=== PATIENT | male | born 1985 | race Caucasian/White ===

== ENCOUNTER → 2021-11-14 15:27 | Outpatient (BNVA) | payer SELFPAY | PROVIDERS: Family Provider Family Medicine; PCP Family Medicine; Visit Provider Emergency Medicine | DX: R68.89 Other general symptoms and signs (principal); R11.0 Nausea; B34.9 Viral infection, unspecified; I10 Essential (primary) hypertension | CPT/HCPCS: 87635 ==

== ENCOUNTER 2024-08-27 18:46 | Emergency (ER) | payer BC, MEDICAID, SELFPAY ==
[2024-08-27] VITALS (7 sets, daily range): BP systolic 142–217; BP diastolic 98–127; PULSE 57–70; RESP 14–16; TEMP 36.7; O2SAT 96–98; BMI 26.6
--- NOTE | 2024-08-27 19:27 | ECG_ITS ---
[facility] 2024-08-27 Pat Name: Miguel Chicas Department: Room: Gender: Male Head Of Data: : 1985 Requested By: Cora Morales Order Number: [id number] Phylicia MD: HALLIE BRADSHAW Measurements Intervals [place] Rate: 65 P: 69 OR: 191 QRS: 25 QRSD: 94 T: 59 QT: 397 QTc: 415 Interpretive Statements SINUS RHYTHM NONSPECIFIC T-WAVE ABNORMALITY No previous ECG available for comparison Electronically Signed On 08-27-2024 20:57:45 CDT by HALLIE BRADSHAW [email or web address]
--- NOTE | 2024-08-27 20:38 | XRR_ITS ---
PROCEDURE INFORMATION: Exam: XR Chest Exam date and time: 08/27/2024 8:42 PM Age: 39 years old Clinical indication: Other: HTN; Additional info: HTN, cp TECHNIQUE: Imaging protocol: Radiologic exam of the chest. Views: 1 view. COMPARISON: No relevant prior studies available. FINDINGS: Tubes, catheters and devices: None. Lungs: Left lung volume appears slightly decreased. The lungs appear otherwise clear. Pleural spaces: No pleural effusion. No pneumothorax. Heart/Mediastinum: Mediastinum and susanna appear unremarkable. Diaphragm: Slight elevation of the left hemidiaphragm is demonstrated. Bones/joints: No acute bony abnormality identified. XR/XR chest 1V portable [id number] IMPRESSION: No evidence for an acute cardiopulmonary process.
--- NOTE | 2024-08-27 20:43 | ED_ITS ---
HPI - General Adult 2 General: Chief complaint: General Medical Stated complaint: High BP Time Seen by Provider: 08/27/24 20:25 Source: patient Mode of arrival: ambulatory Limitations: no limitations and other History of Present Illness: Patient is a 39-year-old male presents to the emergency department complaining of high blood pressure. States he has been having headaches for the past few months, and has been having blood pressure readings greater than 200 systolic at home. Had onset of central chest pressure today upon waking, it has been constant. He states he used to take medications for blood pressure, does not remember what they are but states he has not followed up with his regular doctor because he states that he got upset she was blaming his high blood pressure on stress. No shortness of breath, visual changes, dizziness or lightheadedness, or other symptoms noted at this time. Blood pressure noted to be 199/106 with triage. MD complaint: HTN, THORNE, CP Onset (ago): month(s) Pain Consistency: constant Associated symptoms: Reports chest pain and headache(s); Deny dyspnea, nausea, rash, palpitations or vomiting Treatments prior to arrival: none Related Data Previous Rx's ?Medication ?Instructions ?Recorded albuterol sulfate 90 mcg/actuation 2 puff inhalation Q 6H PRN 11/14/21 aerosol inhaler shortness of breath or wheez ing #8.5 grams lisinopril 20 mg tablet 20 mg PO DAILY #60 tabs 08/01 12/24 Allergies Allergy/AdvReac Type Severity Reaction Status Date / Time No Known Allergies Allergy Verified 07/08/23 16:59 Review of Systems 2 General: Reports: 10 or more systems reviewed and unremarkable except in HPI and below Const: Denies: fever(s), chills or fatigue Eyes: Denies: change in vision ENMT: Denies: throat pain, ear or mastoid pain or nasal discharge Card: Reports: chest pain and other (HTN); Denies: palpitations, swelling of feet/ankles or lightheadedness Resp: Denies: dyspnea, productive cough or wheezing GI: Denies: abdominal pain, nausea, vomiting, diarrhea or constipation : Denies: flank pain, difficulty urinating, dysuria or urinary frequency Musc: Denies: neck pain, back pain or joint pain Skin/Breast: Denies: rash Neuro: Reports: headache(s); Denies: numbness in extremities or weakness in extremities PFSH ED 2 PFSH: Social History Smoking and tobacco/nicotine status: current every day tobacco/nicotine user Physical Exam 2 Const: COMMON NORMALS: no acute distress, patient oriented x3 and no limitations GENERAL APPEARANCE: cooperative, comfortable and well developed ORIENTATION/CONSCIOUSNESS: Yes awake, Yes oriented to person, Yes oriented to place and Yes oriented to time HENMT: COMMON NORMALS: normocephalic, atraumatic and hearing grossly normal bilaterally HEAD & SCALP: normocephalic and atraumatic Eye: COMMON NORMALS: Equal, round and reactive pupils present, EOMs intact bilaterally and conjunctivae normal CONJUNCTIVA: Yes conjunctivae normal P UPIL: Yes Equal, round and reactive pupils present Neck/C-Spine: COMMON NORMALS: full ROM, supple and no JVD Resp: COMMON NORMALS: normal respiratory effort, No retractions, No use of accessory muscles and clear to auscultation bilaterally AUSCULTATION: clear to auscultation bilaterally Cardio: COMMON NORMALS: no JVD, regular rate, regular rhythm, No clicks present (Cardio), No murmurs present (Cardio) and No rub (Cardio) RATE: r egular rate RHYTHM: regular rhythm GI: COMMON NORMALS: Normal to inspection, nondistended, normoactive bowel sounds present, Soft to palpation and non-tender AUSCULTATION: Yes normoactive bowel sounds PALPATION: Yes Soft to palpation RECTAL EXAM: Yes deferred Extremity: COMMON NORMALS: normal to inspection, full ROM and capillary refill normal Neuro: COMMON NORMALS: patient oriented x3, moves all extremities, no focal motor deficits and no sensory deficits noted SENSORIUM/ORIENTATION: Yes oriented to person, Yes oriented to place and Yes oriented to time Skin: COMMON NORMALS: no rashes or lesions noted GENERAL SKIN EXAM: no rashes or lesions noted Course 2 Vital Signs: Vital signs: Vital Signs Temperature 98.1 F 08/27/24 19:18 Pulse Rate 61 08/27/24 22:15 Respiratory Rate 16 08/27/24 22:15 Blood Pressure 142/98 08/27/24 22:19 Pulse Oximetry 96 08/27/24 22:15 Oxygen Delivery Me thod Room Air 08/27/24 22:15 [facility] - General Adult Medical Decision Making Patient presented with complaints of high blood pressure, stating he has been having headaches for the past few months and actually had onset of chest pain this morning. Used to take unknown blood pressure medication, states he has not followed up with his regular doctor as he was upset that she Stating it was related to stress. Here in triage blood pressure elevated at 199/106, he states at home it has been as high as 240 systolic. Currently has a headache and the chest pressure at this time. Physical exam was normal. Lab work was all normal, including normal troponin, unremarkable EKG, and normal chest x-ray. He was given hydralazine through an IV, blood pressure on recheck noted to be down to 142/98 and he was symptom-free asking if he could go home. Will refer him to PCP for further follow-up and sent prescription for lisinopril as it appears that this is what he was taking for his blood pressure. Encouraged him to take a log of his blood pressure at home to report to PCP and to return with any recurrence of chest pain, shortness of breath, or other concerns. Lab Data 08/27/24 20:35 08/27/24 20:35 Radiology Impressions Chest X-Ray 08/27/24 20:38 IMPRESSION: No evidence for an acute cardiopulmonary process. Laboratory Results WBC 7.69 10^3/uL (3.29-11.43) 08/27/24 20:35 RBC 4.85 10^6/uL (3.85-5.65) 08/27/24 20:35 Hgb 14.50 g/dL (11.27-16.99) 08/27/24 20:35 Hct 43.2 % (37-53) 08/27/24 20:35 MCV 89.1 fl (82-101) 08/27/24 20:35 MCH 29.9 pg (27-33) 08/27/24 20:35 MCHC 33.6 g/dL (30-55) 08/27/24 20:35 RDW 12.6 % (12.1-15.1) 08/27/24 20:35 Plt Count 213 10^3/cmm (157-399) 08/27/24 20:35 MPV 10.6 fL (7.4-10.4) H 08/27/24 20:35 Neut % (Auto) 69.2 % 08/27/24 20:35 Lymph % (Auto) 20.0 % 08/27/24 20:35 Swisher % (Auto) 6.9 % 08/27/24 20:35 Eos % (Auto) 3.1 % 08/27/24 20:35 Baso % (Auto) 0.5 % 08/27/24 20:35 Neut # (Auto) 5.32 10^3/uL (1.8-7.7) 08/27/24 20:35 Lymph # (Auto) 1.5 10^3/uL (0.8-4.8) 08/27/24 20:35 Swisher # (Auto) 0.5 10^3/uL (0.2-0.9) 08/27/24 20:35 Eos # (Auto) 0.2 10^3/uL (0.0-0.8) 08/27/24 20:35 Baso # (Auto) 0.0 10^3/uL (0.0-0.1) 08/27/24 20:35 Nucleated RBC % (auto) 0 % 08/27/24 20:35 Nucleated RBCs # 0.0 /100WBC 08/27/24 20:35 Sodium 141 mmol/L (136-145) 08/27/24 20:35 Potassium 3.8 mmol/L (3.5-5.1) 08/27/24 20:35 Chloride 101 mmol/L (98-107) 08/27/24 20:35 Carbon Dioxide 28 mmol/L (22-29) 08/27/24 20:35 Anion Gap 15.8 (5-19) 08/27/24 20:35 BUN 19 mg/dL (6-20) 08/27/24 20:35 Creatinine 1.1 mg/dL (0.7-1.2) 08/27/24 20:35 GFR Calculation 74.9 mL/min (90-130) L 08/27/24 20:35 Glucose 90 mg/dL (65-115) 08/27/24 20:35 Calculated Osmolality 294 mOsm/kg (285-295) 08/27/24 20:35 Calcium 9.3 mg/dL (8.5-10.5) 08/27/24 20:35 Total Bilirubin 0.3 mg/dL (0.15-1.2) 08/27/24 20:35 AST 18 U/L (0-40) 08/27/24 20:35 ALT 16 U/L (0-41) 08/27/24 20:35 Alkaline Phosphatase 85 U/L (40-130) 08/27/24 20:35 Troponin T Baseline < 6 ng/L (0-15) 08/27/24 20:35 Total Protein 7.0 g/dL (6.6-8.7) 08/27/24 20:35 Albumin 4.6 g/dL (3.5-5.2) 08/27/24 20:35 Globulin 2.4 g/dL (1.3-4.6) 08/27/24 20:35 Urine Color Yellow (Yellow) 08/27/24 20:52 Urine Appearance Clear (CLEAR) 08/27/24 20:52 Urine pH 6.0 (5-7) 08/27/24 20:52 Ur Specific Gordon 1.021 (1.005-1.030) 08/27/24 20:52 Urine Protein Negative (Negative) 08/27/24 20:52 Urine Glucose (UA) Negative (Normal) 08/27/24 20:52 Urine Ketones Negative (Negative) 08/27/24 20:52 Urine Blood Negative (Negative) 08/27/24 20:52 Urine Nitrate Negative (Negative) 08/27/24 20:52 Urine Bilirubin Negative (Negative) 08/27/24 20:52 Urine Urobilinogen 1.0 mg/dL (Negative) 08/27/24 20:52 Ur Leukocyte Esterase Negative (Negative) 08/27/24 20:52 Urine RBC 0-2 /hpf (0-2) 08/27/24 20:52 Urine WBC 0-5 /hpf (0-5) 08/27/24 20:52 Ur Squamous Epith Cells 0-5 /hpf (0-5) 08/27/24 20:52 Amorphous Sediment Not Reportable 08/27/24 20:52 Urine Bacteria None seen /hpf (NONE) 08/27/24 20:52 Hyaline Casts 0.40 /lpf 08/27/24 20:52 All radiology interpretation(s) finalized by discharge Discharge Plan Discharge Patient Disposition: Home Clinical Impression: Essential hypertension Condition: Stable Prescriptions: New lisinopril 20 mg tablet 20 mg PO DAILY Qty: 60 0RF Discontinued lisinopril 20 mg tablet 20 mg PO DAILY Qty: 60 0RF No Action albuterol sulfate 90 mcg/actuation HFA aerosol inhaler 2 puff inhalation Q6H PRN (Reason: shortness of breath or wheezing) Qty: 8.5 0RF Discharge Orders: Discharge ED (Routine); Ordered 08/27/24 Ordered By: Juve Christopher Referrals: Radha Hamm NP [Primary Care Provider] - Patient Instructions: Hypertension (ED) Activity Restrictions/Additional Instructions: Take lisinopril as prescribed, and follow-up with regular doctor for reevaluation. Low-salt diet. Drink plenty of fluids. Please return with any recurrence of chest pain, shortness of breath, or other concerns that you have. Monitor your blood sugar and keep a log at home to report to primary care. Print Language: Slovak Coding Level of Care Code ED [employer] Technical Assistant for Celestino Tellez
[2024-08-27 20:44] LABS: Basophils % 0.5 %; Eosinophils # 0.2 10^3/uL (0.0-0.8); Eosinophils % 3.1 %; Hematocrit 43.2 % (37-53); Lymphocytes # 1.5 10^3/uL (0.8-4.8); Mean Corpuscular HGB Conc 33.6 g/dL (30-55); Mean Corpuscular Hemoglobin 29.9 pg (27-33); Mean Corpuscular Volume 89.1 fl (82-101); Mean Platelet Volume 10.6 fL (7.4-10.4); Monocytes # 0.5 10^3/uL (0.2-0.9); Monocytes % 6.9 %; Neutrophils # 5.32 10^3/uL (1.8-7.7); Neutrophils % 69.2 %; Nucleated Red Blood Cells % 0 %; Platelet Count 213 10^3/cmm (157-399); Red Blood Count 4.85 10^6/uL (3.85-5.65); Red Cell Distribution Width 12.6 % (12.1-15.1); White Blood Count 7.69 10^3/uL (3.29-11.43)
[2024-08-27 20:58] LABS: Bilirubin Urine Negative (Negative); Blood Urine Negative (Negative); Glucose Urine UA Negative (Normal); Ketones Urine Negative (Negative); Leukocyte Esterase Urine Negative (Negative); Nitrate Urine Negative (Negative); Protein Urine Negative (Negative); Specific Gravity, Urine 1.021 (1.005-1.030); Urine Appearance Clear (CLEAR); Urine Color Yellow (Yellow)
[2024-08-27 21:03] LABS: Add Urine Microscopic? YES; Bacteria Urine None Seen /hpf; RBC Urine 0-2 /hpf (0-2); Squamous Epithelial Cell Urine 0-5 /hpf (0-5); WBC Urine 0-5 /hpf (0-5)
[2024-08-27] MEDS: hyDRALAzine 20 mg/mL INJ 1 mL 10 MG IVP (21:05)
[2024-08-27 21:12] LABS: Troponin(5th) Baseline < 6 ng/L (0-15)
[2024-08-27 21:15] LABS: Alanine Aminotransferase 16 U/L (0-41); Albumin Level 4.6 g/dL (3.5-5.2); Alkaline Phosphatase 85 U/L (40-130); Anion Gap 15.8 (5-19); Aspartate Amino Transferase 18 U/L (0-40); Blood Urea Nitrogen 19 mg/dL (6-20); Calcium 9.3 mg/dL (8.5-10.5); Carbon Dioxide 28 mmol/L (22-29); Chloride 101 mmol/L (98-107); Creatinine Clr Calc Pharmacy 84.9098; Globulin 2.4 g/dL (1.3-4.6); Glomerular Filtration Rate 74.9 mL/min (90-130); Glucose 90 mg/dL (65-115); Osmolality Calculated 294 mOsm/kg (285-295); Potassium 3.8 mmol/L (3.5-5.1); Sodium 141 mmol/L (136-145); Total Bilirubin 0.3 mg/dL (0.15-1.2)
[2024-08-27] MEDS: lisinopril 20 mg Tablet PO (22:30)
--- NOTE | 2024-08-29 08:45 | DCPLANNER ---
[facility] - General Adult Medical Decision Making Patient presented with complaints of high blood pressure, stating he has been having headaches for the past few months and actually had onset of chest pain this morning. Used to take unknown blood pressure medication, states he has not followed up with his regular doctor as he was upset that she Stating it was related to stress. Here in triage blood pressure elevated at 199/106, he states at home it has been as high as 240 systolic. Currently has a headache and the chest pressure at this time. Physical exam was normal. Lab work was all normal, including normal troponin, unremarkable EKG, and normal chest x-ray. He was given hydralazine through an IV, blood pressure on recheck noted to be down to 142/98 and he was symptom-free asking if he could go home. Will refer him to PCP for further follow-up and sent prescription for lisinopril as it appears that this is what he was taking for his blood pressure. Encouraged him to take a log of his blood pressure at home to report to PCP and to return with any recurrence of chest pain, shortness of breath, or other concerns.
== END 2024-08-27 22:34 | disposition home or self-care (01) ==
PROVIDERS: Emergency Provider Physician Assistant; PCP Nurse Practitioner Family
DX: I10 Essential (primary) hypertension (principal); Z72.0 Tobacco use
CPT/HCPCS: 36415; 71045; 80053; 81001; 84484; 85025; 93005; 96374; 99285; J0360; J9999